=== PATIENT | male | born 1970 | race Caucasian/White ===

== ENCOUNTER 2023-04-19 20:23 | Emergency (ER) | payer OTHER, SELFPAY ==
--- NOTE | ~2023-04-19 | XR_ITS ---
EXAM: XR lumbar spine min 4V DATE: 04/19/2023 22:10 HISTORY: injury, PAIN TO LFET SIDE . COMPARISON: None available. FINDINGS: 5 nonrib-bearing lumbar-type vertebral bodies. Partial lumbarization of S1, rudimentary di sc at S1-S2. Pedicles intact. 1.5 cm anterolisthesis at L5-S1. Bilateral L5 pars defects. Multilevel mild degenerative disc disease. Large right lateral bridging osteophyte between L1 and L2. Severe deg enerative disc disease at L5-S1. Mild facet arthropathy in the lower lumbar spine. IMPRESSION: Grade 2 anterolisthesis at L5-S1 with bilateral pars defects. Reviewed, dictated and finalized at location K.
[2023-04-19 20:54] VITALS: BP 133/116; PULSE 113; RESP 18; TEMP 37; O2SAT 99
[2023-04-19] MEDS: HYDROmorphone HCL INJ (*CRX) 1 MG/ML SYR IM (22:28)
--- NOTE | 2023-04-19 22:45 | ED.BACK ---
HPI - Back Pain/Injury General Chief Complaint: Back Pain/Injury Stated Complaint: work injury left low back pain Time Seen by Provider: 04/19/23 21:42 Source: patient and family Mode of arrival: ambulatory Limitations: no limitations History of Present Illness HPI Narrative: 53-year-old here with complaints of low back pain. 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 He denies any bladder or bowel incontinence. Denies any tingling sensation down his legs. MD elicited complaint: back injury Pertinent past history: prior back pain Onset (ago): day(s) (1) Timing: constant Severity: severe Quality: throbbing Location: lumbar spine Radiation: none Exacerbating factors: movement Relieving factors: immobilization Context: fall Associated symptoms: denies other symptoms Related Data Home Medications Medication Instructions Recorded Confirmed carvedilol 25 mg tablet mg 04/19/23 valsartan 80 mg tablet mg 04/19/23 Allergies Allergy/AdvReac Type Severity Reaction Status Date / Time acetaminophen [From Percocet] AdvReac Itching Verified 04/19/23 21:27 oxycodone [From Percocet] AdvReac Itching Verified 04/19/23 21:27 Review of Systems Review of Systems: All systems reviewed & are unremarkable except as noted in HPI and below Constitutional: Constitutional: Reports no additional constitutional complaints Eyes: Eyes: Reports no additional eye complaints ENT: Reports system reviewed and no additional complaints, except as documented Cardiovascular: Cardiovascular: Reports no additional cardiovascular complaints Respiratory: Respiratory: Reports no additional respiratory complaints Gastrointestinal: Gastrointestinal: Reports no additional gastrointestinal complaints Musculoskeletal: Musculoskeletal: Reports no additional musculoskeletal complaints Integumentary/Breasts: Skin/Breast: Reports system reviewed and no additional complaints, except as docu Neurologic: Reports system reviewed and no additional complaints, except as documented Psychiatric: Psychiatric: Reports no additional psychiatric complaints Exam Narrative: GENERAL: Well-appearing, well-nourished, and in no acute distress. HEAD: Normocephalic, atraumatic. EYES: PERRLA and EOMI. NECK: Supple. CHEST: Clear to auscultation. No respiratory distress. HEART: Regular rate and rhythm. No murmur heard. Normal peripheral pulses. ABDOMEN: Soft, nontender, nondistended, normal active bowel sounds. EXTREMITIES: Normal range of motion. No edema. Back no vertebral point tenderness pain on the lateral aspect mostly on the left from L3-L5 SKIN: Warm, dry, no rash. NEURO: No focal deficits. Alert and oriented x3. PSYCH: Normal mood and affect. Course Course Emergency Course: Patient was given 1 mg Dilaudid IM and Zofran ODT x-ray was obtained which showed DJD of the lumbar spine. His pain has much improved. I did inform him about his x-ray findings recommended him to continue his pain medication at home. Vital Signs Vital signs: Vital Signs Temperature 37.0 C 04/19/23 20:54 Pulse Rate 113 H 04/19/23 20:54 Respiratory Rate 18 04/19/23 20:54 Blood Pressure 133/116 H 04/19/23 20:54 Pulse Oximetry 99 04/19/23 20:54 Oxygen Delivery Room Air 04/19/23 20:54 Temperature 37.0 C 04/19/23 20:54 Pulse Rate 113 H 04/19/23 20:54 Respiratory Rate 18 04/19/23 20:54 Blood Pressure 133/116 H 04/19/23 20:54 Pulse Oximetry 99 04/19/23 20:54 Oxygen Delivery Room Air 04/19/23 20:54 MDM - Back Pain/Injury Differential Diagnosis Differential diagnosis: Likely lumbar radiculopathy and strain of lumbar region Medical Records Attestation: I reviewed the patient's medical records. Imaging Data Radiologist's impressio
[2023-04-19 23:20] VITALS: BP 145/84; PULSE 94; RESP 18; O2SAT 98
== END 2023-04-19 23:22 | disposition home or self-care (01) ==
PROVIDERS: Emergency Provider Family Medicine; PCP Family Medicine
DX: S39.012A Strain of muscle, fascia and tendon of lower back, initial encounter (principal); V04.00XA Pedestrian on foot injured in collision with heavy transport vehicle or bus in nontraffic accident, initial encounter
CPT/HCPCS: 72110; 96372; 99283; J1170